=== PATIENT | female | born 1995 | race Caucasian/White ===

== ENCOUNTER 2018-12-07 17:31 | Emergency (ER) | payer BC, SELFPAY ==
[2018-12-07 17:32] VITALS: BP 99/58; PULSE 73; RESP 15; TEMP 37.1; O2SAT 100; BMI 23.4
--- NOTE | 2018-12-07 19:28 | ED.DCSUM_ITS ---
- ER Visit Summary Date of Service: 12/07/18 Chief Complaint: Abdominal pain History of Present Illness: The patient is a 23 F presenting with abdominal pain. She states this started today. She complains of pain right lower quadrant. She states the pain has been intermittent today. She complains of nausea with no vomiting. She has had 2 episodes of diarrhea. She is currently on her period. She states this is 1 week early. She complains of mild dysuria. She denies fever. She does not believe she is . Denies other complaints. Physical Examination: Vitals are stable. Patient is afebrile. Alert no acute distress. HEENT exam is unremarkable. Neck is supple. Lungs are clear and equal bilaterally. Heart is regular rate and rhythm. Abdomen is soft right lower quadrant tenderness with no rebound or guarding Extremities are unremarkable. Skin is warm and dry. Remainder of exam is unremarkable. Emergency Department Course and Treatment: Patient given IV fluids, morphine, Zofran. CBC, chemistries unremarkable. Urinalysis shows 0 white blood cells, 25-50 red blood cells. She is currently on her period. hCG negative. Pelvic ultrasound shows Trace free fluid around the right ovary, likely physiologic. Otherwise, negative study. CT abdomen pelvis shows Trace free fluid in the cul-de-sac, likely physiologic. Otherwise negative. Normal appendix. Patient continued to have nausea and was given an additional dose of Zofran with improvement. Her pain has resolved. She states she has symptoms typical of her previous yeast infection with thick discharge with vaginal itching. She decli rupinder pelvic exam. She is given Diflucan x1. She is given prescription for Phenergan for home. She has an appointment with her primary care physician this week. Advised return to ED for worsening complaints. Disposition: Discharge home Impression: Abdominal pain This note was generated with [employer] dictation software. It may contain incorrect words, spelling, and punctuation that were not noted in review of the chart prior to signing ED Disposition - Plan for ED Patient: Instructions: ABDOMINAL PAIN, Unknown Cause, (Female) Prescriptions: proMETHazine tablet [Phenergan] 25 mg PO Q6H PRN PRN #10 tab PRN Reason: Nausea Prescription Printed Referrals: [facility] Doctor,Out of [Primary Care Provider] -
--- NOTE | 2018-12-07 19:30 | CT_ITS ---
STUDY: CT ABDOMEN AND PELVIS WITH CONTRAST REASON FOR EXAM: Female, 23 years old. Lower quadrant pain. RADIATION DOSAGE (If Supplied By Facility): CTDIvol = ( 10.43 ) mGy, DLP = ( 591.00 ) mGycm TECHNIQUE: Transaxial images were obtained from the dome of the diaphragm to the symphysis pubis without oral contrast. 100ML IV/Oral Isovue 300 was administered. Sagittal and coronal images were reconstructed. Individualized dose optimization techniques were used for this CT. COMPARISON: None. FINDINGS: Lung bases are clear. Visualized heart is normal. The liver is unremarkable. The gallbladder is unremarkable. The spleen and pancreas are unremarkable. The adrenal glands are normal. The kidneys are unremarkable. No stones or hydronephrosis. The aorta is normal in caliber. Trace free fluid in the cul-de-sac. No free air or organized collection. No bowel obstruction or inflammatory change. Normal appendix. Urinary bladder is unremarkable. Uterus is unremarkable. Ovaries are bilaterally symmetric. Normal abdominal wall. Normal osseous structures. CT/Abdomen/Pelvis WITH Contrast IMPRESSION: Trace free fluid in the cul-de-sac, likely physiologic. Otherwise negative CT of the abdomen and pelvis. Electronically Signed: Anupama Cali MD at 22:03 EDT Tel , Service support ,
--- NOTE | 2018-12-07 19:31 | US_ITS ---
STUDY: ULTRASOUND OF THE FEMALE PELVIS - COMPLETE REASON FOR EXAM: Female, 23 years old. Right lower quadrant pain, irregular menses. LMP: 11/19/2018. TECHNIQUE: Transabdominal, transvaginal. TECHNICAL QUALITY: Adequate. COMPARISON: None. FINDINGS: Uterus is normal in size and echogenicity, measuring 6.6 x 3.3 x 8 cm. Endometrial thickness is normal, measuring 4 mm. No uterine mass. Right ovary is normal in size and echogenicity, measuring 4 x 2.4 x 3 cm. No mass or dominant cyst. Arterial and venous flow are present. Left ovary is normal in size and echogenicity, measuring 3.5 x 2.5 x 2.5 cm. No mass or dominant cyst. Arterial and venous flow are present. Trace free fluid around the right ovary. US/Transvaginal Non- IMPRESSION: 1. Trace free fluid around the right ovary, likely physiologic. Otherwise, negative study. Electronically Signed: Anupama Cali MD at 21:43 EDT Tel , Service support ,
[2018-12-07 19:59] LABS: Internal QC Validated? YES +Cl - CLEAR BKGD; Pregnancy, Serum, hCG Quali. NEGATIVE Negative
[2018-12-07 20:00] LABS: Absolute Lymphocyte Count 1.78 X10^3/uL (0.83-4.51); Absolute Neutrophil Count 7.3 X10^3/uL (2.0-7.7); Basophil# 0.05 X10^3/uL; Basophil% 0.5 % (0-1); Eosinophil# 0.15 X10^3/uL; Eosinophils% 1.5 % (0-5); Hematocrit 40.5 % (37-47); Hemoglobin 12.9 g/dL (12.0-15.0); Lymphocyte # 1.78 X10^3/ul (4.0); Lymphocyte % 17.9 % (19-41); Mean Corp Hgb Conc 31.9 g/dL (32-36); Mean Platelet Vol. 12.3 fl (6.2-12.0); Monocyte# 0.68 X10^3/uL; Monocyte% 6.8 % (0-10); NRBC Flagged by Analyzer 0 % (0-5); Neutrophil # 7.25 X10^3/uL (2.7-7.7); Platelet Count 192 K/mm3 (150-450); RBC Distribution Width CV 13.1 % (11.6-14.6); RBC Distribution Width SD 43.6 fl (35.1-43.9); Red Blood Count 4.45 M/mm3 (4.2-5.4); White Blood Count 9.9 K/mm3 (4.4-11.0)
[2018-12-07 20:02] LABS: Anion Gap 4 (5-15); BUN 13 mg/dL (7-18); BUN/Creat Ratio 17.6 RATIO (10-20); Calcium,Total 8.7 mg/dL (8.5-10.1); Chloride 107 mmol/L (98-107); Creatinine, Serum 0.74 mg/dL (0.55-1.02); EST Glomerular Filtration Rate 103 mL/min (>60); Est Glom Filt Rate - Afr Amer 125 mL/min (>60); Estimated Creatinine Clearance 123.57 ml/min; Glucose 111 mg/dL (74-106); Potassium 3.9 mmol/L (3.5-5.1); Sodium Level 137 mmol/L (136-145)
[2018-12-07 20:07] LABS: White Blood Cells 0 SEEN /hpf (0-5)
[2018-12-07] MEDS: Ondansetron 4 MG/2 ML Vial IV ×2 (20:07→21:56)
[2018-12-07] MEDS: 0.9% Normal Saline 1,000 ML 1000 ML IV (20:08)
[2018-12-07 20:12] LABS: Color, Urine Yellow (Yellow); Glucose, Dipstick Normal (Normal); Ketone-Dipstick 5 mg/dl (Negative); Leukocyte Esterase-Dipstick 25 /ul (Negative); Nitrite-Dipstick Negative (Negative); Occult Blood-Urine 250 /ul (Negative); Protein-Dipstick 100 mg/dl (Negative); Specific Gravity, Urine 1.025 (1.002-1.030); Urine Bilirubin Dipstick Negative (Negative); Urine Clarity Clear (Clear); Urine Urobilinogen Normal (Normal)
[2018-12-07 20:20] LABS: Bacteria RARE /hpf (None Seen); Mucous, Urine RARE /hpf (<or=2+); Red Blood Cells-Urine 25-50 SEEN /hpf (0-5); Squamous Epithelial Cells - UA 0-5 SEEN /hpf (5-10)
[2018-12-07 22:05] VITALS: BP 108/58; PULSE 73; RESP 16; O2SAT 100
--- NOTE | 2018-12-07 23:05 | ED.DEP ---
ED Disposition - Plan for ED Patient: Instructions: ABDOMINAL PAIN, Unknown Cause, (Female) Prescriptions: proMETHazine tablet [Phenergan] 25 mg PO Q6H PRN PRN #10 tablet PRN Reason: Nausea Referrals: [facility] Doctor,Out of [Primary Care Provider] -
[2018-12-07 23:21] VITALS: PULSE 74; RESP 15; O2SAT 98
[2018-12-07] MEDS: Fluconazole 100 MG Tablet 150 MG PO (23:21)
== END 2018-12-07 23:30 | disposition home or self-care (01) ==
LOC: ED 19:05
PROVIDERS: Emergency Provider Emergency Medicine
DX: R10.31 Right lower quadrant pain (principal); R19.7 Diarrhea, unspecified; R30.0 Dysuria; R11.0 Nausea; K21.9 Gastro-esophageal reflux disease without esophagitis
CPT/HCPCS: 74177; 76830; 80048; 81001; 84703; 85025; 93976; 96361; 96372; 96374; 96376; 99284; J7030; Q9967; A4216; J2405

== ENCOUNTER → 2020-04-13 | Outpatient (CLI) | payer OTHER, SELFPAY ==
[2020-04-17 04:09] LABS: Chlamydia By Nucleic Acid AMP Negative (Negative)
[2020-04-17 11:57] LABS: Gonococcus By Nucleic Acid AMP Negative (Negative)
[2020-04-17 15:23] LABS: HPV Reflexed? NOT INDICATED
== END | disposition home or self-care (01) ==
LOC: LABSPEC 10:45
PROVIDERS: Visit Provider Student in an Organized Health Care Education/Training Program
DX: Z12.4 Encounter for screening for malignant neoplasm of cervix (principal); Z11.3 Encounter for screening for infections with a predominantly sexual mode of transmission
CPT/HCPCS: 87491; 87591; 88175; G0145

== ENCOUNTER → 2020-04-26 11:41 | Outpatient (CLI) | payer OTHER, SELFPAY ==
[2020-04-26 13:59] LABS: Absolute Lymphocyte Count 1.69 X10^3/uL (0.83-4.51); Absolute Neutrophil Count 7.3 X10^3/uL (2.0-7.7); Basophil# 0.05 X10^3/uL; Basophil% 0.5 % (0-1); Eosinophil# 0.11 X10^3/uL; Eosinophils% 1.1 % (0-5); Hematocrit 40.3 % (37-47); Hemoglobin 13.7 g/dL (12.0-15.0); Lymphocyte # 1.69 X10^3/ul (4.0); Lymphocyte % 16.9 % (19-41); Mean Corpuscular Hgb 29.7 pg (27.0-32.0); Mean Corpuscular Volume 87.2 fL (81-99); Mean Platelet Vol. 12.6 fl (6.2-12.0); Monocyte# 0.74 X10^3/uL; Monocyte% 7.4 % (0-10); NRBC Flagged by Analyzer 0 % (0-5); Neutrophil # 7.33 X10^3/uL (2.7-7.7); Neutrophil % 73.5 % (47-70); Platelet Count 243 K/mm3 (150-450); RBC Distribution Width CV 12.9 % (11.6-14.6); RBC Distribution Width SD 40.8 fl (35.1-43.9); Red Blood Count 4.62 M/mm3 (4.2-5.4)
[2020-04-26 15:04] LABS: HIV - WCH Non-Reactive (Nonreactive); Hepatitis B Surface Antigen Non-Reactive (Nonreactive); Hepatitis C Antibody Non-Reactive (Nonreactive); Rubella IgG Reactive (Nonreactive)
[2020-04-27 03:33] LABS: Prenatal RPR NONREACTIVE (NONREACTIVE)
== END ==
PROVIDERS: Visit Provider Student in an Organized Health Care Education/Training Program
DX: Z34.81 Encounter for supervision of other normal pregnancy, first trimester (principal)
CPT/HCPCS: 36415; 85025; 86703; 86762; 86803; 87086; 87088; 87340

== ENCOUNTER → 2020-08-27 13:50 | Outpatient (CLI) | payer OTHER, SELFPAY ==
[2020-08-27 15:34] LABS: Hematocrit 36.1 % (37-47); Hemoglobin 11.9 g/dL (12.0-15.0); Mean Corpuscular Hgb 30.1 pg (27.0-32.0); Mean Corpuscular Volume 91.4 fL (81-99); Mean Platelet Vol. 12.2 fl (6.2-12.0); Platelet Count 182 K/mm3 (150-450); RBC Distribution Width SD 43.7 fl (35.1-43.9); Red Blood Count 3.95 M/mm3 (4.2-5.4); White Blood Count 12.4 K/mm3 (4.4-11.0)
[2020-08-27 15:45] LABS: Glucose Challenge Gest 1H 50g 131 mg/dL (70-140)
== END ==
PROVIDERS: Visit Provider Student in an Organized Health Care Education/Training Program
DX: Z34.82 Encounter for supervision of other normal pregnancy, second trimester (principal)
CPT/HCPCS: 36415; 82950; 85027

== ENCOUNTER → 2020-09-20 15:55 | Outpatient (CLI) | payer OTHER, SELFPAY | PROVIDERS: Visit Provider Student in an Organized Health Care Education/Training Program | DX: Z34.82 Encounter for supervision of other normal pregnancy, second trimester (principal) | CPT/HCPCS: 36415; 86850 ==

== ENCOUNTER → 2020-11-06 | Outpatient (CLI) | payer OTHER, SELFPAY | END | disposition home or self-care (01) | LOC: LABSPEC 15:21 | PROVIDERS: Visit Provider Obstetrics & Gynecology | DX: Z36.85 Encounter for antenatal screening for Streptococcus B (principal) | CPT/HCPCS: 87081 ==

== ENCOUNTER 2020-12-01 05:40 | Inpatient (IN) | payer OTHER, SELFPAY ==
[2020-12-01] VITALS (47 sets, daily range): BP systolic 95–137; BP diastolic 51–80; PULSE 69–104; TEMP 36–37.3; O2SAT 97–100; BMI 26.9
[2020-12-01 05:37] LABS: ROM Internal Control Test YES-OK TO RESULT pt. (Internal QC)
[2020-12-01 05:38] LABS: ROM Patient Test POSITIVE (Negative)
[2020-12-01 06:15] LABS: Absolute Lymphocyte Count 2.18 X10^3/uL (0.83-4.51); Absolute Neutrophil Count 7.9 X10^3/uL (2.0-7.7); Basophil# 0.06 X10^3/uL; Basophil% 0.5 % (0-1); Eosinophil# 0.24 X10^3/uL; Eosinophils% 2.1 % (0-5); Hematocrit 37.5 % (37-47); Hemoglobin 12.6 g/dL (12.0-15.0); Lymphocyte # 2.18 X10^3/ul (0.83-4.51); Lymphocyte % 19.1 % (19-41); Mean Corp Hgb Conc 33.6 g/dL (32-36); Mean Corpuscular Hgb 30.3 pg (27.0-32.0); Mean Corpuscular Volume 90.1 fL (81-99); Mean Platelet Vol. 12.4 fl (6.2-12.0); Monocyte# 0.78 X10^3/uL; Monocyte% 6.8 % (0-10); NRBC Flagged by Analyzer 0 % (0-5); Neutrophil # 7.92 X10^3/uL (2.7-7.7); Neutrophil % 69.4 % (47-70); Platelet Count 142 K/mm3 (150-450); RBC Distribution Width CV 13.1 % (11.6-14.6); RBC Distribution Width SD 42.9 fl (35.1-43.9); Red Blood Count 4.16 M/mm3 (4.2-5.4); White Blood Count 11.4 K/mm3 (4.4-11.0)
[2020-12-01] MEDS: 0.9% Saline Lock 10 ML Syringe IV ×3 (10:10→17:12)
[2020-12-01] MEDS: Lactated Ringers 1,000 ML 50 ML IV (10:10)
--- NOTE | 2020-12-01 11:56 | PCM.HP.BLA ---
History and Physical Date of Admission: 12/01/20 Chief complaint: Leakage of fluid History of present illness: 25-year-old G1, P0 at 39 weeks and 4 days with KADE: 12/05/2019 1 x 8-week ultrasound arrives with leakage of clear fluid. Patient uncertain of when it started she noticed out of the shower at 2200 on 11/30/2020 some leaking that stopped. Then noted in the middle of the night this morning 12/01/2020 to have soaked sheets. Denies headache, chest pain, shortness of breath, nausea vomiting, right upper quadrant pain. Patient states good movement. is complicated by Rh- Obstetric history G1: Current Past medical history: Mitral valve prolapse Medications: vitamin Past surgical history: None Allergies: No known drug allergies Social history: Denies smoking, alcohol use, drug use Family history: Denies history DVT or PE Review of systems: Besides above pertinent positives a full review of systems was performed and found to be negative Physical exam: Vital signs: Blood pressure 125/88 pulse 88 temperature 98.1 General: Normal-appearing no acute distress HEENT: Normocephalic atraumatic Cardiac/respiratory: No use of accessory muscles, nonlabored breathing Abdomen: Soft, nontender, gravid Pelvic exam: Cervical exam 3/50/-3. For bag noted, AROM for clear fluid Extremities: No peripheral edema normal peripheral pulses Psych: Normal affect normal demeanor nonpressured speech Assessment plan: 25-year-old G1, P0 at 39 weeks and 4 days with SROM. Admit labor and delivery CEFM GBS negative Rh-: for RhoGam SROM: Noted to have for bag, AROM clear fluid for bag. No cervical change will consider augmenting with Pitocin Routine orders Anesthesia see
[2020-12-01] MEDS: Lactated Ringers 500 ML 999 ML IV ×3 (13:14→18:13)
[2020-12-01] MEDS: Oxytocin 30 units/NS 500 ml 30 UNITS/500 ML IV.SOLN IV (15:22)
[2020-12-01] MEDS: Ondansetron 4 MG/2 ML Vial IV (16:38)
[2020-12-01] MEDS: Lactated Ringers 1,000 ML 200 ML IV (18:44)
[2020-12-01] MEDS: fentaNYL-bupivacaine (epidural) 100 ML BAG EPIDURAL (19:17)
[2020-12-02] VITALS (24 sets, daily range): BP systolic 98–125; BP diastolic 54–80; PULSE 62–95; RESP 16–18; TEMP 36.3–37.3; O2SAT 99–100
[2020-12-02] MEDS: Lactated Ringers 1,000 ML 200 ML IV (00:05)
[2020-12-02] MEDS: fentaNYL-bupivacaine (epidural) 100 ML BAG EPIDURAL (00:05)
[2020-12-02] MEDS: Oxytocin 30 units/NS 500 ml 30 UNITS/500 ML IV.SOLN 334 UNITS IV (05:27)
--- NOTE | 2020-12-02 05:56 | EX.PCM.OBRPT ---
Vaginal Delivery Findings Description of Procedure: Normal spontaneous vaginal delivery of a viable female infant, vertex ABDULLAHI. Head and shoulders delivered with ease. Cord cut and clamped. Baby handed off to patient. Cord avulsion noted, manual extraction of placenta. Second-degree midline perineal laceration noted and repaired in typical fashion. EBL 300 cc Apgars 8/9
[2020-12-02] MEDS: 0.9% Saline Lock 10 ML Syringe IV (08:01)
[2020-12-02] MEDS: Senna/Docusate Sodium 1 Tablet PO (16:34)
[2020-12-03 00:30] VITALS: BP 112/70; PULSE 85; RESP 16; TEMP 36.6
[2020-12-03 04:40] VITALS: BP 121/76; PULSE 84; RESP 16; TEMP 36.6
[2020-12-03] MEDS: Senna/Docusate Sodium 1 Tablet PO (08:23)
[2020-12-03 08:40] VITALS: BP 114/72; PULSE 99; RESP 16; TEMP 37.2
--- NOTE | 2020-12-03 09:00 | PCM.PN.OB ---
Subjective Subjective Infant is nursing well and clusterfeeding. Denies heavy lochia. OOB, ambulating and voiding without difficulty. Objective Data Objective Data Vital Signs: Vital Signs Temp Pulse Resp BP Pulse Ox 98.9 F 86 16 119/77 99 12/03/20 14:11 12/03/20 14:11 12/03/20 14:11 12/03/20 14:11 12/02/20 05:46 Oxygen Delivery Method Room Air Weight: 82.826 kg Body Mass Index (BMI) 26.9 Lab / Micro Data Result Diagrams: 12/01/20 05:50 Micro: Microbiology 12/01/20 05:50 Mucosa - Nose SARS-CoV-2 Antigen (Rapid) - Final Physical Exam Const alert, oriented x3 and no apparent distress General Appearance: cooperative and comfortable HEENT normocephalic Resp Auscultation: clear to auscultation bilaterally Cardio regular rate, regular rhythm, S1 normal heart sound and S2 normal heart sound OB / External & Speculum: other Uterus Palpation: other OB Fundus firm and nontender Extremity General Extremity: edema bilateral Assessment & Plan (1) (spontaneous vaginal delivery): PLAN: doing well Rh negative - O neg plan for d/c home later today or tomorrow
--- NOTE | 2020-12-03 09:14 | PCM.DC ---
Discharge Instructions Diet Discharge Diet: No restrictions Activity Discharge Activity: Return to Normal Activity May resume sexual activity in: 4-6 weeks Lifting Restrictions: 20lb Dressing / Incision Call your doctor if you observe: Using more than 1 pad per hour, Shortness of breath, Chest pain, Calf discomfort, Uncontrolled pain and - (Persistent or severe headache) Follow Up Care Please Follow Up With: Ed Hardwick MD When: 3 weeks for telehealth follow up 6 weeks for visit Test Results: Test results from this visit will be discussed in further detail at your follow-up appointment, if applicable. Discharge Plan Admission Admit Date/Time: 12/01/20 05:40 Primary Reason for Your Visit: Vaginal delivery Attending Provider: Ed Hardwick Instructions Forms: Information Patient Instructions: After a Vaginal Discharge Orders/Prescriptions Prescriptions: New ibuprofen 600 mg Tablet 600 mg PO Q8H PRN PRN (Reason: pain) Qty: 30 RF: 0 Continued prenat.vits,angelina,[id number] Tablet 1 tab PO DAILY RF: 0 Referrals / Follow Up: SSUAN SANTOYO [Other] Disposition Disposition (needs filled in before D/C Order can be placed): Home, Self Care
[2020-12-03 14:11] VITALS: BP 119/77; PULSE 86; RESP 16; TEMP 37.2
== END 2020-12-03 14:37 | disposition home or self-care (01) | DRG 807 ==
LOC: WPOUT 05:42 → WP 05:42
PROVIDERS: Admitting Provider Obstetrics & Gynecology; Visit Provider Obstetrics & Gynecology
DX: O99.42 Diseases of the circulatory system complicating childbirth (principal); I34.1 Nonrheumatic mitral (valve) prolapse; O70.1 Second degree perineal laceration during delivery; O69.89X0 Labor and delivery complicated by other cord complications, not applicable or unspecified; Z20.822 Contact with and (suspected) exposure to COVID-19; Z3A.39 39 weeks gestation of pregnancy; Z37.0 Single live birth
CPT/HCPCS: 59025; 59050; 84112; 85025; 86850; 86900; 86901; 87426; 99218; J7120; A4216; G0378; J2405

== ENCOUNTER 2021-08-16 10:45 | Outpatient (CLI) | payer BC, SELFPAY | END 2021-08-16 23:59 | disposition home or self-care (01) | PROVIDERS: Visit Provider Student in an Organized Health Care Education/Training Program | DX: Z11.3 Encounter for screening for infections with a predominantly sexual mode of transmission (principal); N77.1 Vaginitis, vulvitis and vulvovaginitis in diseases classified elsewhere ==